=== PATIENT | female | born 1990 | race African-American/Black ===

== ENCOUNTER 2016-10-12 23:35 | Emergency (ER) | payer OTHER ==
[2016-10-12 23:51] VITALS: BMI 33.2
[2016-10-13] MEDS ORDERED: SUCRALFATE 1 GM TABLET (FP) PO ONE (00:36)
[2016-10-13] MEDS ORDERED: FAMOTIDINE 20 MG/50 ML IVPB 50 ML IVPB ONE (00:36)
[2016-10-13] MEDS ORDERED: MAG HYDROX/AL HYDROX/SIMETH 30 ML UNIT-DOSE CUP PO ONE (00:36)
[2016-10-13] MEDS ORDERED: SODIUM CHLORIDE 1,000 ML IV STA (00:36)
[2016-10-13] MEDS ORDERED: SUCRALFATE 1 GM TABLET (FP) ONE (00:44)
[2016-10-13] MEDS ORDERED: MAG HYDROX/AL HYDROX/SIMETH 30 ML UNIT-DOSE CUP ONE (00:44)
--- NOTE | 2016-10-13 00:44 | PDOC ---
History of Present Illness - General History Source: Patient Exam Limitations: No Limitations - History of Present Illness Initial Comments: 26 yo F with a PMHx significant for HTN and c section (May 2016) who presents with chest tightness and pain since last night. The patient state the pain is worsened with inspiration and while lying supine. She also notes it is worsened with cold air and exertion. The patient describes the pain as a constant pressure-like sensation and rates it a 5/10. She notes it is present at rest. She also endorses nasal congestion and productive cough at end of July with blood present in her sputum. She also endorses recent constipation. She denies nausea, vomiting, diarrhea and abdominal pain. She denies fevers and chills. She denies dysuria, hematuria, frequency, and urgency. She denies changes in vision, palpitations and lightheadedness. <Vic Chiu - Last Filed: 10/13/16 00:44> - General History Source: Patient Exam Limitations: No Limitations <Benja Rice - Last Filed: 10/13/16 02:17> - General Chief Complaint: Chest Pain Stated Complaint: CHEST PAIN Time Seen by Provider: 10/12/16 23:49 Past History <Vic Chiu - Last Filed: 10/13/16 00:44> - Reproductive History (#): 3 Para: 1 Ectopic : Yes - Immunization History Immunization Up to Date: Yes - Psycho/Social/Smoking Cessation Hx Anxiety: No Suicidal Ideation: No Smoking History: Never smoked Have you smoked in the past 12 months: No Information on smoking cessation initiated: Yes Hx Alcohol Use: No Drug/Substance Use Hx: No Substance Use Type: None Hx Substance Use Treatment: No <Benja Rice - Last Filed: 10/13/16 02:17> - Past Medical History Allergies/Adverse Reactions: Allergies Allergy/AdvReac Type Severity Reaction Status Date / Time No Known Allergies Allergy Verified 11/13/15 13:50 Home Medications: Ambulatory Orders Folic Acid 1 mg PO DAILY 11/13/15 Vits #93/Iron Fum/FA [ Formula Tablet] 1 each PO DAILY Review of Systems - Review of Systems Able to Perform ROS?: Yes Comments:: GENERAL/CONSTITUTIONAL: No fever or chills. No weakness. HEAD, EYES, EARS, NOSE AND THROAT: No change in vision. No ear pain or discharge. No sore throat. CARDIOVASCULAR: +chest pain No shortness of breath. RESPIRATORY: +hemoptysis No cough, wheezing. GASTROINTESTINAL: No nausea, vomiting, diarrhea or constipation. GENITOURINARY: No dysuria, frequency, or change in urination. MUSCULOSKELETAL: No joint or muscle swelling or pain. No neck or back pain. SKIN: No rash NEUROLOGIC: No headache, vertigo, loss of consciousness, or change in strength/ sensation. ENDOCRINE: No increased thirst. No abnormal weight change. HEMATOLOGIC/LYMPHATIC: No anemia, easy bleeding, or history of blood clots. ALLERGIC/IMMUNOLOGIC: No hives or skin allergy. <Vic Chiu - Last Filed: 10/13/16 00:44> *Physical Exam - Vital Signs Last Vital Signs Temp Pulse Resp BP Pulse Ox 97.6 F 101 H 20 153/97 99 10/12/16 23:50 10/12/16 23:50 10/12/16 23:50 10/12/16 23:50 10/12/16 23:50 - Physical Exam Comments: GENERAL: Awake, alert, and fully oriented, in no acute distress HEAD: No signs of trauma EYES: PERRLA, EOMI, sclera anicteric, conjunctiva clear ENT: Auricles normal inspection, hearing grossly normal, nares patent, oropharynx clear without exudates. Moist mucosa NECK: Normal ROM, supple, no lymphadenopathy, JVD, or masses LUNGS: Breath sounds equal, clear to auscultation bilaterally. No wheezes, and no crackles HEART: Regular rate and rhythm, normal S1 and S2, no murmurs, rubs or gallops ABDOMEN: Soft, nontender, normoactive bowel sounds. No guarding, no rebound. No masses EXTREMITIES: Normal range of motion, no edema. No clubbing or cyanosis. No cords, erythema, or tenderness NEUROLOGICAL: Cranial nerves II through XII grossly intact. Normal speech, normal gait SKIN: Warm, Dry, normal turgor, no rashes or lesions noted. <Vic Chiu - Last Filed: 10/13/16 00:44> - Vital Signs Last Vital Signs Temp Pulse Resp BP Pulse Ox 97.6 F 101 H 20 153/97 99 10/12/16 23:50 10/12/16 23:50 10/12/16 23:50 10/12/16 23:50 10/12/16 23:50 <Benja Rice - Last Filed: 10/13/16 02:17> Heart Score/ECG Review - History History: Slightly suspicious - Electrocardiogram EKG: Non specific repolarization disturbance - Age Age: </= 45 - Risk Factors Risk Factors Heart Score: Yes Hx Hypertension, Yes Hx Obesity Based on the list above the patient has:: 1-2 risk factors - Troponin Troponin: </= normal limit - Score Heart Score - Total: 2 #1 ECG reviewed & interpreted by me at: 23:45 10/13/16 00:43 NSR 104, no std/delfin, RSR' V1-V2, QTC 444 msec <Benja Rice - Last Filed: 10/13/16 02:17> ED Treatment Course - LABORATORY CBC & Chemistry Diagram: 10/13/16 00:55 10/13/16 00:55 - RADIOLOGY Radiology Studies Ordered: Category Date Time Status CHEST X-RAY PORTABLE* [RAD] Stat Radiology 10/13/16 00:26 Ordered <Benja Rice - Last Filed: 10/13/16 02:17> Medical Decision Making - Medical Decision Making 10/13/16 00:39 A portion of this note was documented by scribe services under my direction. I have reviewed the details of the note, within reason, and agree with the documentation with the following case summary and management plan written by me. Patient treated in the ED. Nursing notes are reviewed and incorporated into the medical decision-making. Vital signs reviewed. Peripheral IV access obtained by the nurse, laboratory studies are drawn and sent, reviewed and interpreted by myself. Vital Signs Temp Pulse Resp BP Pulse Ox 97.6 F 101 H 20 153/97 99 10/12/16 23:50 10/12/16 23:50 10/12/16 23:50 10/12/16 23:50 10/12/16 23:50 26 year old female with past medical history of HTN, obesity presents with chest pain since yesterday. Pt noted that she was having midsternal chest tightness that is pleuritic and worse with laying down. Unsure if worsening with food. States that the pain is constant but does not radiate. Does not have diaphoresis or nausea or vomiting. Denies family history of cardiac disease and denies smoking history. The patient states that this is a 1st time episode. Denies taking control pills. Denies hx of DVTs/PEs. Pt is noted to have Sinus tach 104 and RSR' in V1-V2. Will send d-dimer to r/o PE. Will trial GERD medications. The chest pain is atypical, but will send a troponin. Chest xray, reassess. 10/13/16 02:11 Trop negative. CBC, BMP 10/13/16 00:55 10/13/16 00:55 CMP Sodium 142 mmol/L (136-145) 10/13/16 00:55 Potassium 3.8 mmol/L (3.5-5.1) 10/13/16 00:55 Chloride 106 mmol/L (98-107) 10/13/16 00:55 Carbon Dioxide 25 mmol/L (21-32) 10/13/16 00:55 Anion Gap 11 (8-16) 10/13/16 00:55 BUN 14 mg/dL (7-18) D 10/13/16 00:55 Creatinine 0.8 mg/dL (0.55-1.02) 10/13/16 00:55 Creat Clearance w eGFR > 60 (>60) 10/13/16 00:55 Random Glucose 98 mg/dL (74-106) 10/13/16 00:55 Calcium 8.5 mg/dL (8.5-10.1) 10/13/16 00:55 Total Bilirubin 0.3 mg/dL (0.2-1.0) D 10/13/16 00:55 AST 15 U/L (15-37) D 10/13/16 00:55 ALT 27 U/L (12-78) D 10/13/16 00:55 Alkaline Phosphatase 87 U/L (45-117) D 10/13/16 00:55 Creatine Kinase 234 IU/L (26-192) H 10/13/16 00:55 Troponin I < 0.02 ng/ml (0.00-0.05) 10/13/16 00:55 Total Protein 7.1 g/dl (6.4-8.2) 10/13/16 00:55 Albumin 3.5 g/dl (3.4-5.0) 10/13/16 00:55 Labs reviewed. D-dimer negative. After IV pepcid, the patient reports no symptoms. Again, I suspect that this is atypical chest pain and perhaps even gastritis. The patient would like to go home. I will give a copy of the ECG to the patient. I discussed the physical exam findings, ancillary test results and final diagnoses with the patient. I answered all of the patient's questions. The patient was satisfied with the care received and felt comfortable with the discharge plan and treatment plan. The patient will call their primary care physician within 24 hours to arrange follow-up and will return to the Emergency Department with any new, persistant or worsening symptoms. <Benja Rice - Last Filed: 10/13/16 02:17> *DC/Admit/Observation/Transfer - Attestations Scribe Attestion: Documentation prepared by Vic Chiu, acting as medical communication specialist for Benja Rice MD, MD/DO. <Vic Chiu - Last Filed: 10/13/16 00:44> - Discharge Dispostion Admit: No <Benja Rice - Last Filed: 10/13/16 02:17> Diagnosis at time of Disposition: Atypical chest pain - Discharge Dispostion Disposition: HOME Condition at time of disposition: Stable - Referrals Referrals: STAFF,NOT ON [Primary Care Provider] - - Patient Instructions Printed Discharge Instructions: DI for Atypical Chest Pain Additional Instructions: Your troponin and d-dimer is negative. Please bring a copy of your ECG to your doctor. Take 650 mg tylenol every 4 hours as needed for pain. Follow up with your doctor.
[2016-10-13 01:00] LABS: BASOPHIL 1.2 % (0-2.0); MCH 31.6 pg (25.7-33.7); MEAN CELL VOLUME 92.8 fl (80-96); MEAN PLT VOLUME 9.1 fl (7.5-11.1); NEUTROPHILS 48.1 % (42.8-82.8); PLATELET COUNT 224 K/MM3 (134-434); RDW 13.4 % (11.6-15.6); WHITE BLOOD COUNT 5.8 K/mm3 (4.0-10.0)
[2016-10-13 01:16] LABS: INR 1.11 (0.82-1.09); PROTHROMBIN TIME (PATIENT) 12.2 SEC (9.98-11.88)
[2016-10-13 01:28] LABS: ALBUMIN 3.5 g/dl (3.4-5.0); ANION GAP 11 (8-16); BILIRUBIN,TOTAL 0.3 mg/dL (0.2-1.0); CALCIUM 8.5 mg/dL (8.5-10.1); CO2 25 mmol/L (21-32); CREATININE 0.8 mg/dL (0.55-1.02); GLUCOSE,RANDOM 98 mg/dL (74-106); SGOT/AST 15 U/L (15-37); SGPT/ALT 27 U/L (12-78); TOT PROT 7.1 g/dl (6.4-8.2)
[2016-10-13 01:30] LABS: ALK PHOS 87 U/L (45-117); CPK 234 IU/L (26-192); TROPONIN I < 0.02 ng/ml (0.00-0.05)
[2016-10-13 02:32] VITALS: BP 130/70; PULSE 82; TEMP 98.3
--- NOTE | 2016-10-13 18:38 | EKG ---
Test Reason : Blood Pressure : / mmHG Vent. Rate : 104 BPM Atrial Rate : 104 BPM P-R Int : 140 ms QRS Dur : 086 ms QT Int : 338 ms P-R-T Axes : 045 049 005 degrees QTc Int : 444 ms SINUS TACHYCARDIA NONSPECIFIC T WAVE ABNORMALITY ABNORMAL ECG WHEN COMPARED WITH ECG OF 18-NOV-2014 08:17, NO SIGNIFICANT CHANGE WAS FOUND Confirmed by HEIDY FERNANDEZ MD ([id number]) on 10/13/2016 6:38:38 PM Referred By: Confirmed By:HEIDY FERNANDEZ MD
--- NOTE | 2016-10-16 13:40 | EKG ---
Test Reason : Blood Pressure : / mmHG Vent. Rate : 092 BPM Atrial Rate : 092 BPM P-R Int : 156 ms QRS Dur : 090 ms QT Int : 370 ms P-R-T Axes : 060 054 025 degrees QTc Int : 457 ms NORMAL SINUS RHYTHM INCOMPLETE RBBB. POSSIBLE LEFT ATRIAL ENLARGEMENT BORDERLINE ECG WHEN COMPARED WITH ECG OF 12-OCT-2016 23:42, NO SIGNIFICANT CHANGE WAS FOUND CLINICAL CORRELATION IS RECOMMENDED Confirmed by CARLITA MALDONADO MD ([id number]) on 10/16/2016 1:39:57 PM Referred By: Confirmed By:CARLITA MALDONADO MD
== END 2016-10-13 02:32 | disposition home or self-care (01) ==
LOC: JER 23:35
PROC: 3E033GC Introduction of Other Therapeutic Substance into Peripheral Vein, Percutaneous Approach (ICD-10-PCS; principal; 2016-10-12)
DX: R07.89 Other chest pain (principal); I10 Essential (primary) hypertension
CPT/HCPCS: 36415; 80053; 82553; 84484; 84703; 85025; 85379; 85610; 85730; 93005; 93010; 99283-25

== ENCOUNTER 2017-02-01 20:39 | Emergency (ER) | payer OTHER ==
--- NOTE | 2017-02-01 20:49 | PDOC ---
Rapid Medical Evaluation Time Seen by Provider: 02/01/17 20:46 Medical Evaluation: Allergies Allergy/AdvReac Type Severity Reaction Status Date / Time No Known Allergies Allergy Verified 11/13/15 13:50 02/01/17 20:47 I have performed a brief in-person evaluation of this patient. The patient presents with a chief complain of:cx tightness increases with deep inspiration, cough, okeefe x4d Home b/p:last night 149/112 pt restarted HTN med: enalapril x2d ago Pertinent physical exam findings:L/S CTAB I have ordered the following:ekg The patient will proceed to the ED for further evaluation.
[2017-02-01 20:52] VITALS: BP 160/83; PULSE 83; BMI 33.8
--- NOTE | 2017-02-01 22:47 | PDOC ---
History of Present Illness - General Chief Complaint: Respiratory Stated Complaint: CHEST PAIN/HEADACHE Time Seen by Provider: 02/01/17 20:46 History Source: Patient Exam Limitations: No Limitations - History of Present Illness Initial Comments: 02/01/17 23:34 26-year-old female with a history of hypertension presents to the emergency department complaining of a nonproductive cough which causes chest tightness on deep inspiration and her with intermittent bitemporal 5/10 intermittent throbbing headache without dizziness, lightheadedness, visual disturbance, facial pains, neck pains/stiffness, back pains, shortness of breath, abdominal pains, flank pains, urinary symptoms. Patient denies any other complaints Patient states she has been noncompliant with her hypertension medication for approximately 4 months for started taking 2 days ago. Timing/Duration: reports: other (x1 month) Past History - Past Medical History Allergies/Adverse Reactions: Allergies Allergy/AdvReac Type Severity Reaction Status Date / Time No Known Allergies Allergy Verified 02/01/17 20:52 Home Medications: Ambulatory Orders Folic Acid 1 mg PO DAILY 11/13/15 Vits #93/Iron Fum/FA [ Formula Tablet] 1 each PO DAILY COPD: No HTN: Yes (non compliant x 1 month) - Reproductive History (#): 3 Para: 1 Ectopic : Yes - Immunization History Immunization Up to Date: Yes - Suicide/Smoking/Psychosocial Hx Smoking History: Never smoked Have you smoked in the past 12 months: No Hx Alcohol Use: No Drug/Substance Use Hx: No Substance Use Type: None Hx Substance Use Treatment: No Review of Systems - Review of Systems Able to Perform ROS?: Yes Comments:: 02/01/17 23:36 CONSTITUTIONAL: Absent: fever, chills, diaphoresis, generalized weakness, malaise, loss of appetite HEENT: Absent: rhinorrhea, nasal congestion, throat pain, throat swelling, difficulty swallowing, mouth swelling, ear pain, eye pain, visual Changes CARDIOVASCULAR: Chest tightness when coughing Absent: loss of consciousness, palpitations, irregular heart rate, peripheral edema RESPIRATORY: Absent: cough, shortness of breath, dyspnea with exertion, orthopnea, wheezing, stridor, hemoptysis GASTROINTESTINAL: Absent: abdominal pain, abdominal distension, nausea, vomiting, diarrhea, constipation, melena, hematochezia GENITOURINARY: Absent: dysuria, frequency, urgency, hesitancy, hematuria, flank pain, genital pain MUSCULOSKELETAL: Absent: myalgia, arthralgia, joint swelling SKIN: Absent: rash, itching, pallor HEMATOLOGIC/IMMUNOLOGIC: Absent: easy bleeding, easy bruising, lymphadenopathy, frequent infections +bitemporal okeefe Is the patient limited Cymraes proficient: No *Physical Exam - Vital Signs Last Vital Signs Temp Pulse Resp BP Pulse Ox 83 18 160/83 99 02/01/17 20:47 02/01/17 20:47 02/01/17 20:47 02/01/17 20:47 - Physical Exam Comments: 02/01/17 23:36 GENERAL: Well developed, well nourished. Awake and alert. No acute distress. HEENT: Normocephalic, atraumatic. PERRLA, EOMI. No conjunctival pallor. Sclera are non- icteric. Moist mucous membranes. Oropharynx is clear. NECK: Supple. Full ROM. No JVD. Carotid pulses 2+ and symmetric, without bruits. No thyromegaly. No lymphadenopathy. CARDIOVASCULAR: Regular rate and rhythm. No murmurs, rubs, or gallops. Distal pulses are 2+ and symmetric. PULMONARY: No evidence of respiratory distress. Lungs clear to auscultation bilaterally. No wheezing, rales or rhonchi. ABDOMINAL: Soft. Non-tender. Non-distended. No rebound or guarding. No organomegaly. Normoactive bowel sounds. MUSCULOSKELETAL Normal range of motion at all joints. No bony deformities or tenderness. No CVA tenderness. EXTREMITIES: No cyanosis. No clubbing. No edema. No calf tenderness. SKIN: Warm and dry. Normal capillary refill. No rashes. No jaundice. ED Treatment Course - RADIOLOGY Radiology Studies Ordered: Category Date Time Status CHEST PA & LAT [RAD] Stat Radiology 02/01/17 22:43 Ordered Radiograph Interpretation: 02/02/17 01:31 CT head w/o contrast; NAD 02/02/17 01:49 CXR 2v NAD *DC/Admit/Observation/Transfer Diagnosis at time of Disposition: Cough Hypertension Qualifiers: Hypertension type: unspecified secondary hypertension Qualified Code(s): I15.9 - Secondary hypertension, unspecified; I15 - Secondary hypertension - Discharge Dispostion Disposition: HOME Condition at time of disposition: Stable Admit: No - Referrals Referrals: STAFF,NOT ON [Primary Care Provider] - - Patient Instructions Printed Discharge Instructions: Cough, High Blood Pressure Additional Instructions: Be sure to take your high blood pressure medication as indicated Follow-up with your physician [id number] supportive care/Robitussin every 6 hours as needed for cough Return back to the emergency department for severe/persistent or worsening symptoms - Post Discharge Activity
--- NOTE | 2017-02-02 21:20 | EKG ---
Test Reason : Blood Pressure : / mmHG Vent. Rate : 072 BPM Atrial Rate : 072 BPM P-R Int : 158 ms QRS Dur : 098 ms QT Int : 400 ms P-R-T Axes : 033 049 023 degrees QTc Int : 438 ms NORMAL SINUS RHYTHM NORMAL ECG WHEN COMPARED WITH ECG OF 13-OCT-2016 01:15, NO SIGNIFICANT CHANGE WAS FOUND Confirmed by KEVIN LOYOLA MD ([id number]) on 02/02/2017 9:19:58 PM Referred By: Confirmed By:KEVIN LOYOLA MD
== END 2017-02-02 02:15 | disposition home or self-care (01) ==
LOC: JER 20:39
DX: I15.9 Secondary hypertension, unspecified (principal); R05 Cough
CPT/HCPCS: 70450-TC; 71020-TC; 84703; 93005; 93010; 99281-25; 99283-25

== ENCOUNTER 2017-07-28 21:03 | Emergency (ER) | payer OTHER ==
[2017-07-28 21:20] VITALS: BP 134/97; PULSE 80; TEMP 98.5; BMI 33.5
--- NOTE | 2017-07-28 21:21 | PDOC ---
History of Present Illness - General Chief Complaint: Urinary Problem Stated Complaint: ABDOMINAL PAIN Time Seen by Provider: 07/28/17 21:20 History Source: Patient Exam Limitations: No Limitations Past History - Travel Traveled outside of the country in the last 30 days: No Close contact w/someone who was outside of country & ill: No - Past Medical History Allergies/Adverse Reactions: Allergies Allergy/AdvReac Type Severity Reaction Status Date / Time No Known Allergies Allergy Verified 02/01/17 20:52 Home Medications: Ambulatory Orders Cephalexin Monohydrate [Keflex -] 500 mg PO BID #14 capsule 07/28/17 Hydrochlorothiazide [Hctz -] 12.5 mg PO DAILY 07/28/17 COPD: No HTN: Yes (non compliant x 1 month) - Reproductive History (#): 3 Para: 1 Ectopic : Yes - Immunization History Immunization Up to Date: Yes - Suicide/Smoking/Psychosocial Hx Smoking History: Never smoked Have you smoked in the past 12 months: No Hx Alcohol Use: No Drug/Substance Use Hx: No Substance Use Type: None Hx Substance Use Treatment: No Review of Systems - Review of Systems Able to Perform ROS?: Yes Comments:: 07/28/17 22:33 CONSTITUTIONAL: Absent: fever, chills, diaphoresis, generalized weakness, malaise, loss of appetite GASTROINTESTINAL: Absent: abdominal pain, abdominal distension, nausea, vomiting, diarrhea, constipation, melena, hematochezia GENITOURINARY: Present: hesitency, dysuria Absent: frequency, urgency, hematuria, flank pain, genital pain MUSCULOSKELETAL: Absent: myalgia, arthralgia, joint swelling SKIN: Absent: rash, itching, pallor NEUROLOGIC: Absent: headache, focal weakness or paresthesias, dizziness, unsteady gait, seizure, mental status changes, bladder or bowel incontinence Is the patient limited Amharic proficient: No *Physical Exam - Vital Signs Last Vital Signs Temp Pulse Resp BP Pulse Ox 98.5 F 80 20 134/97 99 07/28/17 21:17 07/28/17 21:17 07/28/17 21:17 07/28/17 21:17 07/28/17 21:17 - Physical Exam Comments: 07/28/17 22:34 GENERAL: Well developed, well nourished. Awake and alert. No acute distress. NECK: Supple. Full ROM. No JVD. Carotid pulses 2+ and symmetric, without bruits. No thyromegaly. No lymphadenopathy. ABDOMINAL: Suprapubic tenderness. Soft. Non-tender. Non-distended. No rebound or guarding. No organomegaly. Normoactive bowel sounds. MUSCULOSKELETAL Normal range of motion at all joints. No bony deformities or tenderness. No CVA tenderness. EXTREMITIES: No cyanosis. No clubbing. No edema. No calf tenderness. SKIN: Warm and dry. Normal capillary refill. No rashes. No jaundice. NEUROLOGICAL: Alert, awake, appropriate. Cranial nerves 2-12 intact. No deficits to light touch and temperature in face, upper extremities and lower extremities. No motor deficits in the in face, upper extremities and lower extremities. Normoreflexic in the upper and lower extremities. Normal speech. Toes are down- going bilaterally. Gait is normal without ataxia. Medical Decision Making - Medical Decision Making 07/28/17 22:37 Patient is a 27-year-old female with no past medical history who presents to emergency department today with 3-4 days of urinary hesitancy, unable to empty her bladder and dysuria. Patient also suprapubic tenderness on exam. Urine shows 3+ leuks with 56 WBC's. We'll treat for UTI at this time. Started on Keflex, first dose given now. Return precautions given. Patient worsens all discharge instructions and all questions were answered. *DC/Admit/Observation/Transfer Diagnosis at time of Disposition: UTI (urinary tract infection) Qualifiers: Urinary tract infection type: acute cystitis Hematuria presence: with hematuria Qualified Code(s): N30.01 - Acute cystitis with hematuria - Discharge Dispostion Disposition: HOME Condition at time of disposition: Good Decision to Admit order: No - Referrals Referrals: Wade Bennett MD [Staff Physician] - - Patient Instructions Printed Discharge Instructions: DI for Urinary Tract Infection (UTI) Additional Instructions: You have a urinary tract infection. This caused by bacteria. Please drink plenty of fluids. Take your antibiotics as prescribed. Finish the entire dose even if you feel better. You may take Tylenol or Motrin as needed for pain. Follow the manufacture's instructions. Please follow up with your primary care doctor this week. Return to the emergency department if you have fevers, chills, nausea, vomiting , back pain, or have any changes in your symptoms. - Post Discharge Activity Forms/Work/School Notes: Back to Work
[2017-07-28 21:53] LABS: HCG,QUALITATIVE URINE NEGATIVE
[2017-07-28 21:55] LABS: URINE APPEARANCE CLEAR; URINE BILIRUBIN NEGATIVE (<2.0 mg/dL); URINE BLOOD NEGATIVE (NEGATIVE); URINE COLOR YELLOW; URINE GLUCOSE (UA) NEGATIVE (NEGATIVE); URINE KETONE NEGATIVE (NEGATIVE); URINE NITRITE NEGATIVE (NEGATIVE); URINE PROTEIN NEGATIVE (NEGATIVE); URINE UROBILINOGEN NEGATIVE mg/dL (0.2-1.0)
[2017-07-28 21:58] LABS: URINE LEUK ESTERASE 3+ (NEGATIVE)
[2017-07-28 22:08] LABS: EPI CELLS RARE /HPF (FEW); URINE MUCUS RARE
[2017-07-28] MEDS ORDERED: CEPHALEXIN MONOHYDRATE 500 MG CAPSULE (UD) PO ONE (22:23)
[2017-07-28] MEDS ORDERED: CEPHALEXIN MONOHYDRATE 500 MG CAPSULE (UD) ONE (22:29)
== END 2017-07-28 22:39 | disposition home or self-care (01) ==
LOC: JERFT 21:03
DX: N30.01 Acute cystitis with hematuria (principal); I10 Essential (primary) hypertension; Z91.14 Patient's other noncompliance with medication regimen
CPT/HCPCS: 81003; 81015; 84703; 87086; 99281-25

== ENCOUNTER 2017-10-01 09:53 | Emergency (ER) | payer OTHER ==
[2017-10-01 10:12] VITALS: TEMP 99.5; BMI 32.8
--- NOTE | 2017-10-01 10:41 | PDOC ---
History of Present Illness - General Chief Complaint: Headache Stated Complaint: CHEST PAIN/Headache/dizziness Time Seen by Provider: 10/01/17 10:41 History Source: Patient Exam Limitations: No Limitations - History of Present Illness Initial Comments: 10/01/17 10:56 27 year old female with PMH HTN, pituitary microtumor presenting for headache since yesterday. She describes her headache to be located to her forehead and around her eyes, as well as to the top of her head, currently 10/10, progressive , worse with light and movement, no alleviating factors. Denies worst headache of life. Her headache is associated with blurry vision, photophobia, right arm tingling and chest tightness. Denies current chest tightness. She states she took Tylenol at 1200 today, without relief of her symptoms. She states she usually gets headaches twice a month, that this one is different because she has pain around her eyes. Pt states she has not taken her Hydrochlorothiazide in the last three days or her Cabergoline. PCP - Dr. Bertrand Voltage Inspector - Dr. Youssef Neurologist - none Past History - Past Medical History Allergies/Adverse Reactions: Allergies Allergy/AdvReac Type Severity Reaction Status Date / Time No Known Allergies Allergy Verified 10/01/17 10:12 Home Medications: Ambulatory Orders Cephalexin Monohydrate [Keflex -] 500 mg PO BID #14 capsule 07/28/17 Hydrochlorothiazide [Hctz -] 12.5 mg PO DAILY 07/28/17 COPD: No HTN: Yes (non compliant x 1 month) Other medical history: Tumor on pituitary gland - Reproductive History (#): 3 Para: 1 Ectopic : Yes - Immunization History Immunization Up to Date: Yes - Suicide/Smoking/Psychosocial Hx Smoking History: Never smoked Have you smoked in the past 12 months: No Information on smoking cessation initiated: No Hx Alcohol Use: Yes Drug/Substance Use Hx: No Substance Use Type: None Hx Substance Use Treatment: No Review of Systems - Review of Systems Able to Perform ROS?: Yes Comments:: 10/01/17 10:59 General: denies fever, chills, night sweats, generalized weakness. HEENT: admits to blurry vision, photophobia. denies sore throat, rhinorrhea, ear pain. Heart: admits to chest tightness. denies chest pain, palpitations, syncope, lower extremity swelling, diaphoresis. Respiratory: denies shortness of breath, cough, sputum production, hematemesis. Abdomen: denies abdominal pain, nausea, vomiting, diarrhea, constipation, blood in stool. : denies dysuria, increased urinary frequency, hematuria, urinary incontinence , flank pain. Back: denies back pain, flank pain. Musculoskeletal: denies joint pain, muscle pain, joint swelling. Neurological: admits to headache, dizziness, right arm tingling. denies numbness , weakness. Skin: denies rash, laceration, abrasion. *Physical Exam - Vital Signs Last Vital Signs Temp Pulse Resp BP Pulse Ox 99.5 F 98 H 18 146/86 100 10/01/17 10:10 10/01/17 10:10 10/01/17 10:10 10/01/17 10:10 10/01/17 10:10 - Physical Exam Comments: 10/01/17 11:00 Appearance: comfortable. HEENT: head is normocephalic, atraumatic. EOMI. PERRLA. Neck: supple. Full ROM. Heart: regular rhythm. no murmurs, rubs or gallops. No pericardial friction rub. Lungs: clear to auscultation bilaterally. no crackles, rhonchi or wheezing. no stridor. Abdomen: soft, nontender. normal bowel sounds. no rebound, guarding, masses. Extremities: Peripheral pulses intact and equal. No lower extremity edema. Neurological: Alert. Oriented x3. CN2-12 intact. 5/5 strength all extremities. Full sensation all extremities and bilateral face. Romberg negative. Finger to nose normal. Gait normal. Heart Score/ECG Review - ECG Impressions Comment:: 10/01/17 11:17 Rate 97. regular rhythm. normal axis. no acute ST changes. Medical Decision Making - Medical Decision Making 10/01/17 11:12 27 year old female with PMH HTN, pituitary microtumor, hyperprolactinemia presenting to ED for headache. Neurologically intact. Initial Vital Signs Temp Pulse Resp BP Pulse Ox 99.5 F 98 H 18 146/86 100 10/01/17 10:10 10/01/17 10:10 10/01/17 10:10 10/01/17 10:10 10/01/17 10:10 Afebrile. No tachycardia. Mildly hypertensive. No hypoxia. HCTZ ordered for BP management. Reglan, Tylenol, Meclizine ordered for headache and dizziness. IV fluids ordered. Will reassess. 10/01/17 13:19 Pt reassessed. States her dizziness is improved. States her headache is not improved. 10/01/17 13:41 Toradol ordered for persistent headache. 10/01/17 14:34 Pt reassessed. States her headache is improved. Would like to go home. Pt will be discharged, with strict return precautions and referral for neurology. *DC/Admit/Observation/Transfer Diagnosis at time of Disposition: Headache - Discharge Dispostion Disposition: HOME Condition at time of disposition: Improved Decision to Admit order: No - Referrals Referrals: Mark Dumont MD [Staff Physician] - - Patient Instructions Printed Discharge Instructions: DI for Migraine, DI for Headache Additional Instructions: You were seen today for headache. You were given intravenous Reglan, Tylenol, Toradol and Meclizine, as well as intravenous fluids. Take Tylenol over the counter for your headache. Drink lots of water to stay hydrated. Get at least 8 hours of sleep tonight. Take your medication as prescribed to you. Do not miss doses of your hydrochlorothiazide or cabergoline. Please follow up with a primary care provider within 7 days. Please bring your paperwork given to you today with you. Please follow up with a neurologist within 7 days, I have provided a referral for one for you. Please bring your paperwork given to you today with you. Please return to the Emergency Department for weakness, numbness, tingling, visual changes, facial drooping, problems speaking, fever, chills, nausea, vomiting, increasing pain, or any new, worsening or concerning symptoms. - Post Discharge Activity
[2017-10-01] MEDS ORDERED: ACETAMINOPHEN 1000 MG/100 ML VIAL (NON FORMULARY) IVPB ONE (11:10)
[2017-10-01] MEDS ORDERED: METOCLOPRAMIDE HCL INJECTION 10 MG/2 ML VIAL IVPUSH ONE (11:10)
[2017-10-01] MEDS ORDERED: MECLIZINE HCL 25 MG TABLET (FP) PO ONE (11:10)
[2017-10-01] MEDS ORDERED: SODIUM CHLORIDE 1,000 ML IV STA (11:11)
[2017-10-01] MEDS ORDERED: HYDROCHLOROTHIAZIDE 25 MG TABLET (FP) PO ONE (11:11)
--- NOTE | 2017-10-01 11:40 | PDOC ---
Attending Attestation - Resident Resident Name: Magi Pena - ED Attending Attestation I have performed the following: I have examined & evaluated the patient, The case was reviewed & discussed with the resident, I agree w/resident's findings & plan, Exceptions are as noted - HPI HPI: 10/01/17 11:32 "The patient is a 27 year old female, with a significant PMH of HTN, pituitary microtumor who presents to the emergency department with one day of gradually progressively worsening frontal headache. The patient states the headache is worse with moving her eyes, with associated photophobia, dizziness, and chest tightness. This is consistent with her usual headaches, which she gets twice a month. The patient states she has had worse headaches in the past. However, she reports this is the first time her headache has radiated down to her eyes. The patient reports taking Tylenol around 12 am with minimal relief for the headache. She denies any recent numbness, weakness or loss of sensation. The patient currently denies chest pain, palpitations, shortness of breath. Denies fever, chills, nausea, vomit, diarrhea and constipation. Denies dysuria, frequency, urgency and hematuria. Allergies: NKA PCP - Dr. Bertrand Supervisor [place] M[place] - Dr. Youssef - Physicial Exam PE: 10/01/17 11:33 "GENERAL: Awake, alert, and fully oriented, in no acute distress. HEAD: No signs of trauma EYES: PERRLA, EOMI, sclera anicteric, conjunctiva clear ENT: Auricles normal inspection, hearing grossly normal, nares patent, oropharynx clear without exudates. Moist mucosa NECK: Nontender, no stepoffs, Normal ROM, supple, no lymphadenopathy, JVD, or masses LUNGS: Breath sounds equal, clear to auscultation bilaterally. No wheezes, and no crackles HEART: Regular rate and rhythm, normal S1 and S2, no murmurs, rubs or gallops ABDOMEN: Soft, nontender, normoactive bowel sounds. No guarding, no rebound. No masses EXTREMITIES: Normal range of motion, no edema. No clubbing or cyanosis. No cords, erythema, or tenderness NEUROLOGICAL: Cranial nerves II through XII intact. 5/5 strength and sensation in all extremities, Normal speech, normal gait, normal cerebellar function SKIN: Warm, Dry, normal turgor, no rashes or lesions noted." - Medical Decision Making 10/01/17 11:33 27 F with headache, similar in character to previous headaches, with no red flags for SAH/meningitis. No neuro deficits on exam. Will tx symptomatically and reassess. Pt's chest tightness is consistent with pt's usual headache symptoms. She has had similar presentation in the past with negative cardiac work up. Pt currently denies chest pain, so will defer labs. - Tylenol, reglan, IVF - EKG 10/01/17 11:42 EKG with no ischemic changes. 10/01/17 14:10 UPT with "borderline HCG level". Pt reports that she recently terminated a , likely causing the abnormal reading. 10/01/17 14:47 Pt reassessed - now feels completely better. No longer has JOHNS. Pt is well appearing, with normal vitals. Clinically stable for DC at this time. I discussed the physical exam findings, ancillary test results and final diagnoses with the patient. I answered all of the patient's questions. The patient was satisfied with the care received and felt comfortable with the discharge plan and treatment plan. The patient agrees to follow up with the primary care physician within 24-72 hours. <Fernando Arreola - Last Filed: 10/01/17 14:47> Attestations - Attestations 10/01/17 11:45 Documentation prepared by Link Aguayo, acting as biomedical engineering internship for Fernando Arreola MD. <Link Aguayo - Last Filed: 10/01/17 11:45>
[2017-10-01] MEDS ORDERED: MECLIZINE HCL 25 MG TABLET (FP) ONE (12:07)
[2017-10-01] MEDS ORDERED: HYDROCHLOROTHIAZIDE 25 MG TABLET (FP) ONE (12:08)
[2017-10-01] MEDS ORDERED: METOCLOPRAMIDE HCL INJECTION 10 MG/2 ML VIAL ONE (12:08)
[2017-10-01] MEDS ORDERED: ACETAMINOPHEN INJECTION 100 ML IVPB ONE (12:08)
[2017-10-01] MEDS ORDERED: KETOROLAC TROMETHAMINE 15 MG/ML VIAL IVPUSH ONE (13:41)
[2017-10-01] MEDS ORDERED: KETOROLAC TROMETHAMINE 15 MG/ML VIAL ONE (13:49)
[2017-10-01 15:14] VITALS: BP 123/78; PULSE 85
--- NOTE | 2017-10-06 08:55 | EKG ---
Test Reason : Blood Pressure : / mmHG Vent. Rate : 097 BPM Atrial Rate : 097 BPM P-R Int : 152 ms QRS Dur : 088 ms QT Int : 342 ms P-R-T Axes : 044 042 041 degrees QTc Int : 434 ms NORMAL SINUS RHYTHM POSSIBLE LEFT ATRIAL ENLARGEMENT BORDERLINE ECG WHEN COMPARED WITH ECG OF 01-FEB-2017 23:22, NONSPECIFIC T WAVE ABNORMALITY NOW EVIDENT IN LATERAL LEADS Confirmed by JACOBO BE, ODILON ([id number]) on 10/06/2017 8:54:59 AM Referred By: Confirmed By:ODILON CENTENO MD
== END 2017-10-01 15:14 | disposition home or self-care (01) ==
LOC: JER 09:53
PROC: 3E0333Z Introduction of Anti-inflammatory into Peripheral Vein, Percutaneous Approach (ICD-10-PCS; principal; 2017-10-01)
PROC: 3E033NZ Introduction of Analgesics, Hypnotics, Sedatives into Peripheral Vein, Percutaneous Approach (ICD-10-PCS; 2017-10-01)
PROC: 3E033GC Introduction of Other Therapeutic Substance into Peripheral Vein, Percutaneous Approach (ICD-10-PCS; 2017-10-01)
PROC: 3E0337Z Introduction of Electrolytic and Water Balance Substance into Peripheral Vein, Percutaneous Approach (ICD-10-PCS; 2017-10-01)
DX: R51 Headache (principal); I10 Essential (primary) hypertension; D35.2 Benign neoplasm of pituitary gland; Z91.14 Patient's other noncompliance with medication regimen
CPT/HCPCS: 84703; 93005; 93010; 99282-25; J0131; J7030

== ENCOUNTER 2019-11-19 19:07 | Emergency (ER) | payer OTHER ==
[2019-11-19 19:18] VITALS: BP 147/94; PULSE 89; TEMP 97.8; BMI 34.4
--- OUTSIDE RECORDS SUMMARY | 2019-11-19 19:24 | XMS ---
:1990 Author Organization [facility] Support Name Relationship Address Phone [facility] Unavailable [address] [place] [address] DESEAN CALVERT MOTHER [address] [place] [address] DESEAN CALVERT Mother [address] [place] [address] Re-disclosure Warning The records that you are about to access may contain information from federally- assisted alcohol or drug abuse programs. If such information is present, then the following federally mandated warning applies: This information has been disclosed to you from records protected by federal confidentiality rules (42 CFR part 2). The federal rules prohibit you from making any further disclosure of this information unless further disclosure is expressly permitted by the written consent of the person to whom it pertains or as otherwise permitted by 42 CFR part 2. A general authorization for the release of medical or other information is NOT sufficient for this purpose. The Federal rules restrict any use of the information to criminally investigate or prosecute any alcohol or drug abuse patient.The records that you are about to access may contain highly sensitive health information, the redisclosure of which is protected by Article 27-F of the [facility] Public Health law. If you continue you may haveaccess to information: Regarding HIV / AIDS; Provided by facilities licensed or operated by the [facility] Office of Mental Health; or Provided by the [facility] Office for People With Developmental Disabilities. If such information is present, then the following [facility] mandated warning applies: This information has been disclosed to you from confidential records which are protected by state law. State law prohibits you from making any further disclosure of this information without the specific written consent of the person to whom it pertains, or as otherwise permitted by law. Any unauthorized further disclosure in violation of state law may result in a fine or longterm sentence or both. A general authorization for the release of medical or other information is NOT sufficient authorization for further disclosure. Insurance Providers Payer name Policy type Policy ID Covered Covered libertarian's Policy P montserrat / Coverage libertarian ID relationship to Desai Inf ormation type desai AFFINITY [id number] SP [id number] Results ID Date Data Source [id number] 10/28/2019 03:14:00 PM EDT [facility] Name Value Range Interpretation Code Description Data Emily rce(s) Supporting Document(s ) SARS-CoV-2 [facility] This lab was ordered by [employer] and reported by [facility] ([facility]). ID Date Data Source [id number] 10/21/2019 08:23:00 AM EDT [facility] Name Value Range Interpretation Code Description Data Emily rce(s) Supporting Document(s ) SARS-CoV-2 [facility] This lab was ordered by [employer] and reported by [facility]. ID Date Data Source [id number] 09/16/2019 12:00:00 AM EDT [facility] Name Value Range Interpretation Code Description Data Emily rce(s) Supporting Document(s ) 2018-nCoV [facility] RNA XXX JOSE ELIAS+probe- Imp This lab was ordered by [email or web address] ([employer]) and repo rted by [employer]. ID Date Data Source [id number] 09/09/2019 12:00:00 AM EDT [facility] Name Value Range Interpretation Code Description Data Emily rce(s) Supporting Document(s ) 2018-nCoV [facility] RNA XXX JOSE ELIAS+probe- Imp This lab was ordered by [employer] [facility] [employer] and repo rted by [employer] ID Date Data Source [id number] 09/02/2019 12:00:00 AM EDT [facility] Name Value Range Interpretation Code Description Data Emily rce(s) Supporting Document(s ) 2018-nCoV [facility] RNA XXX JOSE ELIAS+probe- Imp This lab was ordered by [email or web address] ([employer]) and repo rted by [employer] ID Date Data Source [id number] 08/26/2019 12:00:00 AM EDT [facility] Name Value Range Interpretation Code Description Data Emily rce(s) Supporting Document(s ) 2018-nCoV [facility] RNA XXX JOSE ELIAS+probe- Imp This lab was ordered by [email or web address] ([employer]) and repo rted by [employer]. ID Date Data Source [id number] 08/23/2019 12:00:00 AM EDT [facility] Name Value Range Interpretation Code Description Data Emily rce(s) Supporting Document(s ) nCoV [facility] RNA XXX JOSE ELIAS+probe- Imp This lab was ordered by [email or web address] ([employer]) and repo rted by [employer]. ID Date Data Source [id number] 08/18/2019 12:00:00 AM EDT [facility] Name Value Range Interpretation Code Description Data Emily rce(s) Supporting Document(s ) nCoV [facility] RNA XXX JOSE ELIAS+probe- Imp This lab was ordered by [employer] and repo rted by [employer]. ID Date Data Source [id number] 08/11/2019 12:00:00 AM EDT [facility] Name Value Range Interpretation Code Description Data Emily rce(s) Supporting Document(s ) nCoV [facility] RNA XXX JOSE ELIAS+probe- Imp This lab was ordered by [email or web address] ([employer]) and repo rted by [employer]. ID Date Data Source [id number] 08/04/2019 12:00:00 AM EDT [facility] Name Value Range Interpretation Code Description Data Emily rce(s) Supporting Document(s ) 2018-nCoV [facility] RNA XXX JOSE ELIAS+probe- Imp This lab was ordered by [email or web address] ([employer]) and repo rted by [employer]. ID Date Data Source [id number] 07/28/2019 12:00:00 AM EDT [facility] Name Value Range Interpretation Code Description Data Emily rce(s) Supporting Document(s ) nCoV [facility] RNA XXX JOSE ELIAS+probe- Imp This lab was ordered by [email or web address] ([employer]) and repo rted by [employer]. ID Date Data Source [id number] 07/26/2019 12:00:00 AM EDT [facility] Name Value Range Interpretation Code Description Data Emily rce(s) Supporting Document(s ) nCoV [facility] RNA XXX JOSE ELIAS+probe- Imp This lab was ordered by [email or web address] ([employer]) and repo rted by [employer]. ID Date Data Source [id number] 06/08/2019 03:07:00 PM EDT [facility] Name Value Range Interpretation Code Description Data Emily rce(s) Supporting Document(s ) COV2 [facility] This lab was ordered by [facility] nd reported by [facility] Vladislav Fortune. Procedure
--- NOTE | 2019-11-19 20:39 | PDOC ---
History of Present Illness - General Chief Complaint: Pain, Acute Stated Complaint: ABD PAIN Time Seen by Provider: 11/19/19 20:38 History Source: Patient Exam Limitations: No Limitations - History of Present Illness Initial Comments: 11/19/19 20:55 29F PMH HTN LMP 09/21 A6 h/o ectopic at estimated 6-8 weeks gestation presenting with 3 days of lower abdomen cramping and pressure w/o vaginal bleeding. Endorses mild nausea but denies vomiting and PO intolerance. Denies f/c, dysuria, frequency. Had a positive home test. VP DESIGN Sukhjinder Mijares Past History - Medical History Allergies/Adverse Reactions: Allergies Allergy/AdvReac Type Severity Reaction Status Date / Time No Known Allergies Allergy Verified 10/01/17 10:12 Home Medications: Ambulatory Orders NK [No Known Home Medication] 10/01/17 COPD: No HTN: Yes (non compliant x 1 month) - Reproductive History Is Patient Now?: Yes (#): 3 Para: 1 Ectopic : Yes - Immunization History Immunization Up to Date: Yes - Psycho-Social/Smoking History Smoking History: Never smoked Have you smoked in the past 12 months: No - Substance Abuse Hx (Audit-C & DAST Scrn) How often the patient has a drink containing alcohol: Monthly or less How often the patient has six or more drinks on one occasion: Less than monthly Score: In Men: 4 or > Positive; In Women: 3 or > Positive: 2 Screen Result (Pos requires Nsg. Audit-10AR): Negative In the last yr the pt used illegal drug/Rx for NonMed reason: No Score: Yes response is considered Positive: 0 Screen Result (Positive result requires Nsg. DAST-10): Negative Review of Systems - Review of Systems Comments:: 11/20/19 02:15 CONSTITUTIONAL: Denies F / C HEENT: Denies headache, lightheadedness, dizziness, sore throat, rhinorrhea RESP: Has dry cough. Denies SOB CARD: Denies chest pain, palpitations GI: + lower abd pressure and cramping; nausea. Denies N / V / D, abdominal pain, bloody stool, inability to tolerate PO : + pelvic pressure. Denies dysuria NEURO: Denies numbness, tingling, weakness MSK: Denies back pain SKIN: Denies rashes *Physical Exam - Vital Signs Last Vital Signs Temp Pulse Resp BP Pulse Ox 97.8 F 89 19 147/94 100 11/19/19 19:15 11/19/19 19:15 11/19/19 19:15 11/19/19 19:15 11/19/19 19:15 - Physical Exam 11/20/19 02:15 GEN: Well appearing, NAD, comfortable. AAOx3. HEENT: NC/AT, EOMI, PERRL. No facial asymmetry. Moist mucous membranes. Normal voice. Supple neck w/ FROM. CV: S1/S2, RRR, no m/r/g LUNG: CTAB, no wheezes, crackles, rales, rhonchi. GI: soft, discomfort on lower abdominal palpation; +BS. PELVIC: Exam chaperoned by Dr. Salazar. No discharge, bleeding, and atrophy on inspection. Cervical os not well visualized but no active bleeding or tissue projection. No blood in vault. Neg CMT on bimanual exam. MSK: No obvious deformities of all extremities. SKIN: Warm, dry, no rashes appreciated. PSYCH: Normal mood and affect. NEURO: Moving all extremities well. ambulates w/ normal gait ED Treatment Course - LABORATORY CBC & Chemistry Diagram: 11/19/19 22:13 11/19/19 22:13 Medical Decision Making - Medical Decision Making 11/20/19 02:15 29F A6 LMP 09/21 @ 6-8 weeks gestation w/ lower abdominal pressure and cramping w/o vaginal bleeding x 3 days. h/o ectopic. - cbc, cmp, b-hCG - UA, UC - TVUS - pain control 11/20/19 00:02 labs reviewed TVUS IOC demosntrating IUP at 5w5d UA neg zofran sl for nausea dc home w/ close SENIOR PROGRAM MANAGER f/u Discharge - Discharge Information Problems reviewed: Yes Clinical Impression/Diagnosis: Abdominal cramping, Condition: Stable Disposition: HOME - Admission No - Follow up/Referral Referrals: ON STAFF,NOT [Primary Care Provider] - - Patient Discharge Instructions Additional Instructions: Your labs and urine were reassuring. Your hCG today is 4399. Your ultrasound report demonstrates a normal with an estimated age of 5 weeks and 5 days. Follow up with your VP DESIGN in the next 3 days for continued pre- care. Please provide them with a copy of your ultrasound report. Follow up with your primary care doctor in the next 10-14 days. Return to the Emergency Department if you experience any new, worsening, or concerning symptoms. - Post Discharge Activity
[2019-11-19] MEDS ORDERED: SODIUM CHLORIDE 0.9% 500 ML INFUS.BAG IV ONE (20:58)
[2019-11-19] MEDS ORDERED: ACETAMINOPHEN 1000 MG/100 ML VIAL (NON FORMULARY) IVPB ONE (20:58)
--- NOTE | 2019-11-19 21:32 | PDOC ---
Attending Attestation - Resident Resident Name: DonalMark - ED Attending Attestation I have performed the following: I have examined & evaluated the patient, The case was reviewed & discussed with the resident, I agree w/resident's findings & plan, Exceptions are as noted - HPI HPI: 11/20/19 03:43 See resident HPI - Physicial Exam PE: 11/20/19 03:44 Agree with documented exam - Medical Decision Making 11/20/19 03:44 early , lower abd cramping, nausea, no vomiting, no bleeding, discharge f/u labs, tvus dispo per clinical course, if iup, symptomatic tx and routine OB f/u Discharge - Discharge Information Problems reviewed: Yes Clinical Impression/Diagnosis: Abdominal cramping, Condition: Stable Disposition: HOME - Follow up/Referral Referrals: ON STAFF,NOT [Primary Care Provider] - - Patient Discharge Instructions Additional Instructions: Your labs and urine were reassuring. Your hCG today is 4399. Your ultrasound report demonstrates a normal with an estimated age of 5 weeks and 5 days. Follow up with your MATHEMATICS PROFESSOR in the next 3 days for continued pre- care. Please provide them with a copy of your ultrasound report. Follow up with your primary care doctor in the next 10-14 days. Return to the Emergency Department if you experience any new, worsening, or concerning symptoms. - Post Discharge Activity
[2019-11-19 22:27] LABS: EOS % 2.3 % (0-4.5); HEMATOCRIT 34.8 % (32.4-45.2); HEMOGLOBIN 11.4 GM/dL (10.7-15.3); LYMPH % 30.7 % (8-40); MCHC 32.7 g/dl (32.0-36.0); MEAN CELL VOLUME 91.6 fl (80-96); MEAN PLT VOLUME 8.6 fl (7.5-11.1); MONO % 7.7 % (3.8-10.2); NEUT % 58.3 % (42.8-82.8); PLATELET COUNT 261 K/MM3 (134-434); RDW 13.7 % (11.6-15.6); WHITE BLOOD COUNT 7.3 K/mm3 (4.0-10.0)
[2019-11-19 22:33] LABS: INR 1.13 (0.83-1.09); PROTHROMBIN TIME (PATIENT) 13.3 SEC (9.7-13.0)
[2019-11-19 22:35] LABS: ACTIVATED PTT 28.6 SECONDS (25.2-36.5)
[2019-11-19] MEDS ORDERED: ACETAMINOPHEN INJECTION 100 ML IVPB ONE (22:56)
[2019-11-19 23:01] LABS: ALBUMIN 3.4 g/dl (3.4-5.0); BILIRUBIN,TOTAL 0.2 mg/dL (0.2-1); BLOOD UREA NITROGEN 10.2 mg/dL (7-18); CALCIUM 8.3 mg/dL (8.5-10.1); CREATININE 0.8 mg/dL (0.55-1.3); POTASSIUM 3.8 mmol/L (3.5-5.1); TOT PROT 7.2 g/dl (6.4-8.2)
[2019-11-19] MEDS ORDERED: ONDANSETRON *ODT* 4 MG TABLET SL ONE (23:47)
[2019-11-19 23:49] LABS: PH,URINE 5.5 (5.0-8.0); URINE APPEARANCE CLEAR; URINE BILIRUBIN NEGATIVE (NEGATIVE); URINE COLOR YELLOW; URINE GLUCOSE (UA) NEGATIVE (NEGATIVE); URINE KETONE NEGATIVE (NEGATIVE); URINE LEUK ESTERASE NEGATIVE (NEGATIVE); URINE NITRITE NEGATIVE (NEGATIVE); URINE PROTEIN NEGATIVE (NEGATIVE)
[2019-11-20] MEDS ORDERED: ONDANSETRON *ODT* 4 MG TABLET ONE (00:21)
== END 2019-11-20 00:52 | disposition home or self-care (01) ==
LOC: SUPCPDRO 19:07 → JER 19:07
PROC: 3E0333Z Introduction of Anti-inflammatory into Peripheral Vein, Percutaneous Approach (ICD-10-PCS; principal; 2019-11-19)
DX: O26.891 Other specified pregnancy related conditions, first trimester (principal); Z3A.01 Less than 8 weeks gestation of pregnancy
CPT/HCPCS: 36415; 76817-TC; 80053; 81003; 84702; 85025; 85610; 85730; 86850; 86900; 86901; 87086; 99284-25; J0131; Q0162

== ENCOUNTER 2019-12-07 12:12 | Emergency (ER) | payer OTHER ==
--- NOTE | 2019-12-07 12:20 | PDOC ---
Rapid Medical Evaluation Time Seen by Provider: 12/07/19 12:16 Medical Evaluation: Allergies Allergy/AdvReac Type Severity Reaction Status Date / Time No Known Allergies Allergy Verified 10/01/17 10:12 12/07/19 12:17 29 year old female pmhx HTN etopic G8 or 9 P2 (living) complaining of vaginal bleeding/cramping and currently 8 weeks . LMP 09/21 Ob: Sukhjinder Mott? PE: Mildly ttp to lower abdomen Plan: Labs TVUS Pt to precede to ED for further evaluation
[2019-12-07 12:21] VITALS: BMI 32.8
[2019-12-07 13:14] LABS: BASO % 0.4 % (0-2.0); EOS % 2.4 % (0-4.5); HEMATOCRIT 35.4 % (32.4-45.2); HEMOGLOBIN 11.9 GM/dL (10.7-15.3); LYMPH % 27.6 % (8-40); MCH 30.6 pg (25.7-33.7); MCHC 33.6 g/dl (32.0-36.0); MEAN CELL VOLUME 91.1 fl (80-96); MEAN PLT VOLUME 8.9 fl (7.5-11.1); NEUT % 61.6 % (42.8-82.8); PLATELET COUNT 236 K/MM3 (134-434); RBC 3.89 M/mm3 (3.60-5.2); RDW 13.9 % (11.6-15.6); WHITE BLOOD COUNT 5.8 K/mm3 (4.0-10.0)
--- OUTSIDE RECORDS SUMMARY | 2019-12-07 13:18 | XMS ---
:1990 Author Organization [facility] Support Name Relationship Address Phone [facility] Unavailable [address] [place] [address] NEHAL MOTHER [address] [place] [address] NEHAL Mother [address] [place] [address] Re-disclosure Warning The records that you are [...] is protected by Article 27-F of the [place] State Public Health law. If you continue you may haveaccess to information: Regarding HIV / AIDS; Provided by facilities licensed or operated by the [facility] Office of Mental Health; or Provided by the [facility] Office for People With Developmental Disabilities. If such information is present, then the following [facility] mandated warning applies: This information has been [...] law may result in a fine or long term sentence or both. A general authorization for the release of medical or other information is NOT sufficient authorization for further disclosure. Insurance Providers Payer name Policy type Policy ID Covered Covered republican's Policy P montserrat / Coverage republican ID relationship to Desai Inf ormation type desai AFFINITY [id number] SP [id number] Results ID Date Data Source [id number] 10/28/2019 03:14:00 PM EDT [facility] Name Value Range Interpretation Code Description Data Emily rce(s) Supporting Document(s ) SARS-CoV-2 [facility] This lab was ordered by [facility] and reported by [employer]. ID Date Data Source [id number] 10/21/2019 08:23:00 AM EDT [facility] Name Value Range Interpretation Code Description Data Emily rce(s) Supporting Document(s ) SARS-CoV-2 [facility] This lab was ordered by [facility] and reported by [employer]. ID Date Data Source [id number] 09/16/2019 12:00:00 AM EDT [facility] Name Value Range Interpretation Code Description Data Emily rce(s) Supporting Document(s ) 2018-nCoV [facility] RNA XXX JOSE ELIAS+probe- Imp This lab was ordered by [facility] and repo rted by [employer]. ID Date Data Source [id number] 09/09/2019 12:00:00 AM EDT [facility] Name Value Range Interpretation Code Description Data Emily rce(s) Supporting Document(s ) 2018-nCoV [facility] RNA XXX JOSE ELIAS+probe- Imp This lab was ordered by [facility] and repo rted by [employer]. ID Date Data Source [id number] 09/02/2019 12:00:00 AM EDT [facility] Name Value Range Interpretation Code Description Data Emily rce(s) Supporting Document(s ) 2018-nCoV [facility] RNA XXX JOSE ELIAS+probe- Imp This lab was ordered by [facility] and repo rted by [employer] ID Date Data Source [id number] 08/26/2019 12:00:00 AM EDT [facility] Name Value Range Interpretation Code Description Data Emily rce(s) Supporting Document(s ) nCoV [facility] RNA XXX JOSE ELIAS+probe- Imp This lab was ordered by [facility] and repo rted by [employer] ID Date Data Source [id number] 08/23/2019 12:00:00 AM EDT [facility] Name Value Range Interpretation Code Description Data Emily rce(s) Supporting Document(s ) nCoV [facility] RNA XXX JOSE ELIAS+probe- Imp This lab was ordered by [employer] and repo rted by [employer]. ID Date Data Source [id number] 08/18/2019 12:00:00 AM EDT [facility] Name Value Range Interpretation Code Description Data Emily rce(s) Supporting Document(s ) nCoV [facility] RNA XXX JOSE ELIAS+probe- Imp This lab was ordered by [employer] and repo rted by [employer]. ID Date Data Source [id number] 08/11/2019 12:00:00 AM EDT [facility] Name Value Range Interpretation Code Description Data Emily rce(s) Supporting Document(s ) nCoV [facility] RNA XXX JOSE ELIAS+probe- Imp This lab was ordered by [facility] and repo rted by [employer]. ID Date Data Source [id number] 08/04/2019 12:00:00 AM EDT [facility] Name Value Range Interpretation Code Description Data Emily rce(s) Supporting Document(s ) 2018-nCoV [facility] RNA XXX JOSE ELIAS+probe- Imp This lab was ordered by [facility] and repo rted by [employer]. ID Date Data Source [id number] 07/28/2019 12:00:00 AM EDT [facility] Name Value Range Interpretation Code Description Data Emily rce(s) Supporting Document(s ) 2018-nCoV [facility] RNA XXX JOSE ELIAS+probe- Imp This lab was ordered by [facility] and repo rted by [employer]. ID Date Data Source [id number] 07/26/2019 12:00:00 AM EDT [facility] Name Value Range Interpretation Code Description Data Emily rce(s) Supporting Document(s ) nCoV [facility] RNA XXX JOSE ELIAS+probe- Imp This lab was ordered by [employer] and repo rted by [employer]. ID Date Data Source [id number] 06/08/2019 03:07:00 PM EDT [facility] Name Value Range Interpretation Code Description Data Emily rce(s) Supporting Document(s ) COV2 [facility] This lab was ordered by [facility] nd reported by [facility] [place]. Procedure
--- NOTE | 2019-12-07 13:41 | PDOC ---
History of Present Illness - General Chief Complaint: Vaginal Bleeding Stated Complaint: VAGINAL BLEEDING 8WKS Time Seen by Provider: 12/07/19 12:16 History Source: Patient Exam Limitations: No Limitations - History of Present Illness Travel History: No Initial Comments: 12/07/19 14:39 29-year-old female presents to ED with vaginal bleeding upon waking since yesterday. Patient also complained of mild suprapubic cramping. Patient denies fever, nausea, chills, weakness. Patient states is approximately 8 weeks based on LMP Timing/Duration: reports: intermittent Quality: reports: mild, cramping Abdominal Pain Onset Location: reports: suprapubic Pain Radiation: reports: no radiation Activities at Onset: reports: none Aggravating Factors: improves with: None Alleviating Factors: improves with: None Past History - Travel History Traveled outside of the country in the last 30 days: No Close contact w/someone who was outside of country & ill: No - Medical History Allergies/Adverse Reactions: Allergies Allergy/AdvReac Type Severity Reaction Status Date / Time No Known Allergies Allergy Verified 12/07/19 12:17 Home Medications: Ambulatory Orders NK [No Known Home Medication] 10/01/17 COPD: No HTN: Yes (non compliant x 1 month) - Reproductive History Is Patient Now?: Yes (#): 8 Para: 2 Ectopic : Yes Therapeutic (s) & number: Yes (2) Spontaneous : 3 - Immunization History Immunization Up to Date: Yes - Psycho-Social/Smoking History Patient Lives Alone: No Lives with/in: spouse/SO Smoking History: Never smoked Have you smoked in the past 12 months: No - Substance Abuse Hx (Audit-C & DAST Scrn) How often the patient has a drink containing alcohol: Monthly or less Number of drinks the patient has on a typical day: 1 or 2 How often the patient has six or more drinks on one occasion: Never Score: In Men: 4 or > Positive; In Women: 3 or > Positive: 1 Screen Result (Pos requires Nsg. Audit-10AR): Negative In the last yr the pt used illegal drug/Rx for NonMed reason: No Score: Yes response is considered Positive: 0 Screen Result (Positive result requires Nsg. DAST-10): Negative Review of Systems - Review of Systems Able to Perform ROS?: Yes Constitutional: No: Symptoms Reported HEENTM: No: Symptoms Reported Respiratory: No: Symptoms reported Cardiac (ROS): No: Symptoms Reported ABD/GI: Yes: Abdominal cramping : No: Symptoms Reported Musculoskeletal: No: Symptoms Reported Integumentary: No: Symptoms Reported Neurological: No: Symptoms reported *Physical Exam - Vital Signs Last Vital Signs Temp Pulse Resp BP Pulse Ox 98.2 F 99 H 18 147/93 100 12/07/19 12:18 12/07/19 12:18 12/07/19 12:18 12/07/19 12:18 12/07/19 12:18 - Physical Exam General Appearance: Yes: Nourished, Appropriately Dressed. No: Apparent Distress HEENT: negative: Pale Conjunctivae Neck: positive: Supple Respiratory/Chest: positive: Lungs Clear, Normal Breath Sounds. negative: Respiratory Distress, Accessory Muscle Use Cardiovascular: positive: Regular Rhythm, Regular Rate. negative: Murmur Female Pelvic Exam: positive: normal external exam, cervical os closed, vaginal bleeding (Scant dark red) Gastrointestinal/Abdominal: positive: Soft, Tenderness (Mild mid suprapubic) Musculoskeletal: negative: CVA Tenderness Extremity: positive: Normal Inspection Integumentary: positive: Normal Color, Warm, Moist Neurologic: positive: Motor Strength 5/5 (ambulatory) ED Treatment Course - LABORATORY CBC & Chemistry Diagram: 12/07/19 12:51 12/07/19 12:51 Medical Decision Making - Medical Decision Making 12/07/19 14:24 Chief complaint: Patient here for evaluation of mid suprapubic cramping, vaginal bleeding since yesterday patient approximately 8 weeks based on LMP. Exam: Patient with scant to no vaginal bleeding in canal. Office closed. Plan: Labs, urine, ultrasound ordered along with Tylenol Laboratory Tests 11/19/19 11/19/19 11/19/19 22:13 22:13 22:13 WBC 7.3 Hgb 11.4 Hct 34.8 Absolute Neuts (auto) 4.3 PT with INR 13.30 H INR 1.13 H PTT (Actin FS) 28.6 Sodium 140 Potassium 3.8 Chloride 108 H Carbon Dioxide 24 Anion Gap 7 L BUN 10.2 Creatinine 0.8 Est GFR (CKD-EPI)AfAm 114.66 Est GFR (CKD-EPI)NonAf 98.93 Random Glucose 88 Calcium 8.3 L Total Bilirubin 0.2 AST 12 L Beta HCG, Quant 4399.4 Urine Protein Urine Glucose (UA) Urine Blood Urine Nitrite Urine Bilirubin Ur Leukocyte Esterase 11/19/19 12/07/19 23:38 12:51 WBC Hgb Hct Absolute Neuts (auto) PT with INR INR PTT (Actin FS) Sodium Potassium Chloride Carbon Dioxide Anion Gap BUN Creatinine Est GFR (CKD-EPI)AfAm Est GFR (CKD-EPI)NonAf Random Glucose Calcium Total Bilirubin AST Beta HCG, Quant 82344.8 Urine Protein Negative Urine Glucose (UA) Negative Urine Blood Negative Urine Nitrite Negative Urine Bilirubin Negative Ur Leukocyte Esterase Negative 12/07/19 14:38 Ultrasound shows single live intrauterine estimated at 5 weeks 6 days based on crown to rump length at 5 weeks 4 days based on mean sac diameter. No heart activity was visualized and cannot be document suggestive of demise. Patient understands and will follow-up with 12/07/19 14:41 Discharge - Discharge Information Problems reviewed: Yes Clinical Impression/Diagnosis: demise Condition: Good Disposition: HOME - Follow up/Referral - Patient Discharge Instructions Patient Printed Discharge Instructions: DI for Miscarriage Additional Instructions: May take Tylenol for discomfort. Follow-up with your [facility] SERV[facility] in regards to today's findings. - Post Discharge Activity
[2019-12-07 13:47] LABS: ALBUMIN 3.6 g/dl (3.4-5.0); BILIRUBIN,TOTAL 0.5 mg/dL (0.2-1); BLOOD UREA NITROGEN 9.1 mg/dL (7-18); CALCIUM 8.5 mg/dL (8.5-10.1); CREATININE 0.8 mg/dL (0.55-1.3); POTASSIUM 3.8 mmol/L (3.5-5.1); TOT PROT 7.8 g/dl (6.4-8.2)
[2019-12-07] MEDS ORDERED: ACETAMINOPHEN 500 MG TABLET (FP) PO ONE (14:14)
[2019-12-07] MEDS ORDERED: ACETAMINOPHEN 325 MG TABLET (FP) ONE (14:15)
[2019-12-07 14:47] LABS: EPI CELLS 23 /uL (0-25.1); HYALINE CASTS 2 /uL (0-3.1); PH,URINE 5.5 (5.0-8.0); URINE APPEARANCE CLEAR; URINE BACTERIA 2015 /uL (0-1359); URINE BILIRUBIN NEGATIVE (NEGATIVE); URINE COLOR YELLOW; URINE GLUCOSE (UA) NEGATIVE (NEGATIVE); URINE KETONE NEGATIVE (NEGATIVE); URINE LEUK ESTERASE NEGATIVE (NEGATIVE); URINE NITRITE NEGATIVE (NEGATIVE); URINE PROTEIN NEGATIVE (NEGATIVE); URINE UROBILINOGEN 0.2 mg/dL (0.2-1.0); URINE WBC 5 /uL (0-25.8)
[2019-12-07 14:50] VITALS: BP 138/88; PULSE 95; TEMP 98
[2019-12-07 15:57] LABS: URINE RBC 66.4 /uL (0-23.9)
[2019-12-07 15:58] LABS: YEAST NEGATIVE (NEGATIVE)
== END 2019-12-07 14:48 | disposition home or self-care (01) ==
LOC: JER 12:12
DX: O36.4XX1 Maternal care for intrauterine death, fetus 1 (principal)
CPT/HCPCS: 36415; 76817-TC; 80053; 81003; 84702; 85025; 86850; 86900; 86901; 87086; 99284-25

== ENCOUNTER 2020-11-29 08:14 | Emergency (ER) | payer OTHER ==
[2020-11-29 08:31] VITALS: BMI 34.1
[2020-11-29 08:32] VITALS: TEMP 98.1
[2020-11-29] MEDS ORDERED: METOCLOPRAMIDE HCL INJECTION 10 MG/2 ML VIAL IVPUSH ONE (10:06)
[2020-11-29] MEDS ORDERED: ACETAMINOPHEN INJECTION 100 ML IVPB ONE (10:07)
[2020-11-29] MEDS ORDERED: METOCLOPRAMIDE HCL INJECTION 10 MG/2 ML VIAL ONE (10:07)
[2020-11-29] MEDS ORDERED: SODIUM CHLORIDE 0.9% 500 ML INFUS.BAG IV ONE (10:08)
[2020-11-29] MEDS ORDERED: ACETAMINOPHEN 1000 MG/100 ML VIAL (NON FORMULARY) IVPB ONE (10:08)
[2020-11-29 11:35] LABS: HEMATOCRIT 34.9 % (32.4-45.2); HEMOGLOBIN 11.7 GM/dL (10.7-15.3); MCH 30.2 pg (25.7-33.7); MCHC 33.4 g/dl (32.0-36.0); MEAN CELL VOLUME 90.3 fl (80-96); MEAN PLT VOLUME 9.2 fl (7.5-11.1); PLATELET COUNT 248 10^3/uL (134-434); RBC 3.86 M/mm3 (3.60-5.2); RDW 13.9 % (11.6-15.6); WHITE BLOOD COUNT 4.6 K/mm3 (4.0-10.0)
[2020-11-29 11:46] LABS: CHLORIDE 106 mmol/L (98-107); SODIUM 140 mmol/L (136-145)
[2020-11-29 11:48] LABS: CALCIUM 8.5 mg/dL (8.5-10.1); GLUCOSE,RANDOM 82 mg/dL (74-106)
[2020-11-29 11:49] LABS: ALBUMIN 3.5 g/dl (3.4-5.0); ANION GAP 4 MMOL/L (8-16); BLOOD UREA NITROGEN 8.7 mg/dL (7-18); CO2 30 mmol/L (21-32)
[2020-11-29 11:52] LABS: CREATININE 0.8 mg/dL (0.55-1.3); SGOT/AST 12 U/L (15-37); SGPT/ALT 17 U/L (13-61)
[2020-11-29 11:53] LABS: BILIRUBIN,TOTAL 0.5 mg/dL (0.2-1); TOT PROT 7.7 g/dl (6.4-8.2)
[2020-11-29 11:54] LABS: ALK PHOS 75 U/L (45-117)
[2020-11-29 15:31] VITALS: BP 134/81; PULSE 75
== END 2020-11-29 15:30 | disposition home or self-care (01) ==
LOC: JER 08:14
PROC: 3E033NZ Introduction of Analgesics, Hypnotics, Sedatives into Peripheral Vein, Percutaneous Approach (ICD-10-PCS; principal; 2020-11-29)
PROC: 3E033GC Introduction of Other Therapeutic Substance into Peripheral Vein, Percutaneous Approach (ICD-10-PCS; 2020-11-29)
DX: R20.2 Paresthesia of skin (principal); I10 Essential (primary) hypertension; R51.9 Headache, unspecified; R07.9 Chest pain, unspecified
CPT/HCPCS: 36415; 70450-TC; 71045-TC-FY; 80053; 82550; 82553; 84484; 85027; 93005; 93010; 96374; 96375; 99285-25; J0131

== ENCOUNTER 2021-09-27 22:16 | Emergency (ER) | payer OTHER ==
[2021-09-27 22:29] VITALS: BP 146/101; PULSE 102; RESP 18; TEMP 98.7; BMI 32.1
== END 2021-09-27 23:47 | disposition left against medical advice (07) ==
LOC: JER 22:16
DX: R05.1 Acute cough (principal)
CPT/HCPCS: 99281-25

== ENCOUNTER 2022-06-29 00:33 | Observation (INO) | payer OTHER ==
[2022-06-29 00:39] VITALS: BMI 28.1
[2022-06-29] MEDS ORDERED: ACETAMINOPHEN 325 MG TABLET (FP) PO ONE ×2 (01:00→19:53)
[2022-06-29] MEDS ORDERED: ALBUTEROL SO4 2.5/IPRATROPIUM 0.5 INH SOL 3 ML VIAL.NEB. NEB ONE ×4 (01:00→01:16)
[2022-06-29] MEDS ORDERED: ACETAMINOPHEN 325 MG TABLET (FP) ONE (01:16)
[2022-06-29 01:17] LABS: BASO % 1.2 % (0-2.0); HEMATOCRIT 37.9 % (32.4-45.2); HEMOGLOBIN 12.7 GM/dL (10.7-15.3); LYMPH % 49.9 % (8-40); MCH 30.1 pg (25.7-33.7); MCHC 33.4 g/dl (32.0-36.0); MEAN PLT VOLUME 9.1 fl (7.5-11.1); MONO % 7.5 % (3.8-10.2); NEUT % 37.4 % (42.8-82.8); PLATELET COUNT 235 10^3/uL (134-434); RBC 4.21 M/mm3 (3.60-5.2); RDW 14.2 % (11.6-15.6)
[2022-06-29 01:33] LABS: POTASSIUM 3.7 mmol/L (3.5-5.1)
[2022-06-29 01:36] LABS: ALBUMIN 4.1 g/dl (3.4-5.0); CALCIUM 9.4 mg/dL (8.5-10.1)
[2022-06-29 01:37] LABS: BLOOD UREA NITROGEN 9.8 mg/dL (7-18)
[2022-06-29 01:42] LABS: BILIRUBIN,TOTAL 0.5 mg/dL (0.2-1); TOT PROT 8.2 g/dl (6.4-8.2)
[2022-06-29 08:52] LABS: BASO % 0.8 % (0-2.0); EOS % 0.8 % (0-4.5); HEMATOCRIT 31.2 % (32.4-45.2); HEMOGLOBIN 10.8 GM/dL (10.7-15.3); LYMPH % 20.3 % (8-40); MCH 31.2 pg (25.7-33.7); MCHC 34.6 g/dl (32.0-36.0); MEAN CELL VOLUME 90.1 fl (80-96); MEAN PLT VOLUME 9.5 fl (7.5-11.1); NEUT % 72.1 % (42.8-82.8); PLATELET COUNT 210 10^3/uL (134-434); RBC 3.47 M/mm3 (3.60-5.2)
[2022-06-29 09:12] LABS: POTASSIUM 3.8 mmol/L (3.5-5.1)
[2022-06-29 09:14] LABS: CALCIUM 8.6 mg/dL (8.5-10.1)
[2022-06-29 09:15] LABS: ALBUMIN 3.6 g/dl (3.4-5.0); BLOOD UREA NITROGEN 10.1 mg/dL (7-18); MAGNESIUM 2.2 mg/dL (1.8-2.4)
[2022-06-29 09:18] LABS: CREATININE 0.8 mg/dL (0.55-1.3); PHOSPHOROUS 3.4 mg/dL (2.5-4.9)
[2022-06-29 09:19] LABS: BILIRUBIN,TOTAL 0.4 mg/dL (0.2-1); TOT PROT 7.2 g/dl (6.4-8.2)
[2022-06-29] MEDS ORDERED: amLODIPine BESYLATE 5 MG TABLET (FP) PO SCH (10:00)
[2022-06-29] MEDS: ENOXAPARIN NA (PORCINE) 40 MG/0.4 ML DISP.SYRIN SQ SCH (10:21)
[2022-06-29] MEDS: ASPIRIN 81 MG CHEWABLE TABLETS PO SCH (13:14)
[2022-06-29 15:07] LABS: BASO % 0.8 % (0-2.0); EOS % 2.3 % (0-4.5); HEMATOCRIT 32.3 % (32.4-45.2); HEMOGLOBIN 10.9 GM/dL (10.7-15.3); LYMPH % 36.2 % (8-40); MCH 30.4 pg (25.7-33.7); MCHC 33.8 g/dl (32.0-36.0); MEAN CELL VOLUME 89.7 fl (80-96); MEAN PLT VOLUME 9.2 fl (7.5-11.1); MONO % 8.5 % (3.8-10.2); NEUT % 52.2 % (42.8-82.8); PLATELET COUNT 226 10^3/uL (134-434); WHITE BLOOD COUNT 5.6 K/mm3 (4.0-10.0)
[2022-06-30] MEDS ORDERED: ACETAMINOPHEN 500 MG TABLET (FP) PO ONE (05:53)
[2022-06-30] MEDS ORDERED: amLODIPine BESYLATE 5 MG TABLET (FP) PO SCH (07:00)
[2022-06-30] MEDS: ENOXAPARIN NA (PORCINE) 40 MG/0.4 ML DISP.SYRIN SQ SCH (10:43)
[2022-06-30] MEDS: ASPIRIN 81 MG CHEWABLE TABLETS PO SCH (10:43)
[2022-06-30] MEDS ORDERED: amLODIPine BESYLATE 5 MG TABLET (FP) PO ONE (11:26)
[2022-06-30 12:15] VITALS: BP 138/90; PULSE 75; RESP 19; TEMP 97
== END 2022-06-30 12:50 | disposition home or self-care (01) ==
LOC: JER 00:33 → JERBED 05:17 → UNDOADMOB 05:17 → J4W 08:48 → JERBED 08:48 → INTOOBSV 09:06 → OBSVTOIN 09:06 → JERBED 09:50 → J4W 09:50
PROVIDERS: ADMIT Internal Medicine; ATTEND Internal Medicine
PROC: 3E013GC Introduction of Other Therapeutic Substance into Subcutaneous Tissue, Percutaneous Approach (ICD-10-PCS; principal; 2022-06-29)
PROC: 3E0F7SF Introduction of Other Gas into Respiratory Tract, Via Natural or Artificial Opening (ICD-10-PCS; 2022-06-29)
DX: R07.89 Other chest pain (principal); R06.02 Shortness of breath; I10 Essential (primary) hypertension; R00.0 Tachycardia, unspecified
CPT/HCPCS: 0241U-QW; 36415; 71045-TC-FY; 80053; 83735; 84100; 84484; 84703; 85025; 85379; 93005; 93010; 93306-TC; 94640; 96372; 99285-25; G0378

== ENCOUNTER 2022-07-03 16:52 | Emergency (ER) | payer OTHER ==
[2022-07-03 16:58] VITALS: BP 137/98; PULSE 96; RESP 18; TEMP 98.6; BMI 29.7
[2022-07-03 18:25] LABS: BASO % 0.8 % (0-2.0); EOS % 1.5 % (0-4.5); HEMATOCRIT 34.8 % (32.4-45.2); HEMOGLOBIN 11.9 GM/dL (10.7-15.3); LYMPH % 33.1 % (8-40); MCH 30.7 pg (25.7-33.7); MCHC 34.1 g/dl (32.0-36.0); MEAN CELL VOLUME 90.1 fl (80-96); MEAN PLT VOLUME 9.3 fl (7.5-11.1); MONO % 9.7 % (3.8-10.2); NEUT % 54.9 % (42.8-82.8); PLATELET COUNT 237 10^3/uL (134-434); RBC 3.86 M/mm3 (3.60-5.2); WHITE BLOOD COUNT 5.3 K/mm3 (4.0-10.0)
[2022-07-03 18:48] LABS: POTASSIUM 3.6 mmol/L (3.5-5.1)
[2022-07-03 18:51] LABS: CALCIUM 9.3 mg/dL (8.5-10.1)
[2022-07-03 18:52] LABS: ALBUMIN 4.1 g/dl (3.4-5.0); BLOOD UREA NITROGEN 12.9 mg/dL (7-18)
[2022-07-03 18:55] LABS: CREATININE 0.9 mg/dL (0.55-1.3)
[2022-07-03 18:56] LABS: BILIRUBIN,TOTAL 0.9 mg/dL (0.2-1); TOT PROT 8.1 g/dl (6.4-8.2)
== END 2022-07-03 19:21 | disposition home or self-care (01) ==
LOC: JER 16:52
DX: R06.02 Shortness of breath (principal); R00.2 Palpitations; R07.89 Other chest pain; N30.01 Acute cystitis with hematuria; N93.9 Abnormal uterine and vaginal bleeding, unspecified; Z20.822 Contact with and (suspected) exposure to COVID-19
CPT/HCPCS: 0241U-QW; 36415; 71046-TC-FY; 80053; 84484; 84703; 85025; 93005; 93010; 99285-25

== ENCOUNTER 2022-07-07 19:36 | Emergency (ER) | payer OTHER ==
[2022-07-07 19:48] VITALS: BMI 29.8
[2022-07-07] MEDS ORDERED: LORazepam 2 MG TABLET PO ONE (21:46)
[2022-07-07] MEDS ORDERED: LORazepam 1 MG TABLET ONE (21:52)
[2022-07-07 22:01] VITALS: BP 129/85; PULSE 85; RESP 17; TEMP 98.1
== END 2022-07-07 22:02 | disposition home or self-care (01) ==
LOC: JER 19:36
DX: R00.2 Palpitations (principal); F43.0 Acute stress reaction
CPT/HCPCS: 93005; 93010; 99283-25

== ENCOUNTER 2022-09-27 17:59 | Emergency (ER) | payer OTHER ==
[2022-09-27 18:07] VITALS: RESP 18; BMI 30.2
[2022-09-27] MEDS ORDERED: DEXAMETHASONE SOD PHOSPHATE 4 MG/1 ML VIAL IVPUSH ONE (18:52)
[2022-09-27] MEDS ORDERED: METOCLOPRAMIDE HCL INJECTION 10 MG/2 ML VIAL IVPB ONE (18:52)
[2022-09-27] MEDS ORDERED: ACETAMINOPHEN 1000 MG/100 ML BAG IVPB ONE (18:52)
[2022-09-27] MEDS ORDERED: SODIUM CHLORIDE 0.9% 1000 ML INFUS.BAG IV ONE (18:52)
[2022-09-27] MEDS ORDERED: DEXAMETHASONE SOD PHOSPHATE 4 MG/1 ML VIAL ONE (19:18)
[2022-09-27] MEDS ORDERED: METOCLOPRAMIDE HCL INJECTION 10 MG/2 ML VIAL ONE (19:19)
[2022-09-27] MEDS ORDERED: ACETAMINOPHEN INJECTION 100 ML IVPB ONE (19:19)
[2022-09-27 19:55] VITALS: BP 109/72; TEMP 97.4
[2022-09-27 20:00] VITALS: PULSE 77
[2022-09-27] MEDS ORDERED: KETOROLAC TROMETHAMINE 30 MG/1 ML VIAL IM ONE (20:39)
[2022-09-27] MEDS ORDERED: KETOROLAC TROMETHAMINE 30 MG/1 ML VIAL ONE (20:45)
== END 2022-09-27 21:04 | disposition home or self-care (01) ==
LOC: JER 17:59
PROC: 3E033NZ Introduction of Analgesics, Hypnotics, Sedatives into Peripheral Vein, Percutaneous Approach (ICD-10-PCS; principal; 2022-09-27)
PROC: 3E033GC Introduction of Other Therapeutic Substance into Peripheral Vein, Percutaneous Approach (ICD-10-PCS; 2022-09-27)
PROC: 3E033GC Introduction of Other Therapeutic Substance into Peripheral Vein, Percutaneous Approach (ICD-10-PCS; 2022-09-27)
PROC: 3E033GC Introduction of Other Therapeutic Substance into Peripheral Vein, Percutaneous Approach (ICD-10-PCS; 2022-09-27)
PROC: 3E0333Z Introduction of Anti-inflammatory into Peripheral Vein, Percutaneous Approach (ICD-10-PCS; 2022-09-27)
DX: G43.909 Migraine, unspecified, not intractable, without status migrainosus (principal)
CPT/HCPCS: 70450-TC; 99284-25